=== PATIENT | female | born 1950 | race Caucasian/White ===

== ENCOUNTER 2020-03-10 11:48 | Outpatient (CLI) | payer MEDICARE, OTHER, SELFPAY ==
--- NOTE | 2020-03-10 11:54 | MM_ITS ---
WS: [id number] BILATERAL DIGITAL SCREENING MAMMOGRAPHY WITH CAD CLINICAL INFORMATION: SCREENING HISTORY: Screening mammogram. No current complaints. COMPARISON: 2018 TECHNIQUE: Bilateral CC and MLO views. FINDINGS: Scattered fibroglandular densities bilaterally. Asymmetric density subareolar right breast more consp icuous compared to the prior examinations. Recommend further evaluation with spot compression views a nd ultrasound if persistent. Punctate calcifications right breast. Left breast is unchanged. RECOMMEND FURTHER EVALUATION WITH RIGHT DIAGNOSTIC MAMMOGRAPHY AND ULTRASOUND IF PERSISTENT. MM/[place] [id number] IMPRESSION: BI-RADS: 0-Incomplete: Need additional imaging evaluation FOLLOW UP: Need Additional Imaging
== END 2020-03-10 11:49 | disposition home or self-care (01) ==
LOC: RADSHAW 11:53
PROVIDERS: PCP Family Medicine; Visit Provider Family Medicine
DX: Z12.31 Encounter for screening mammogram for malignant neoplasm of breast (principal); R92.1 Mammographic calcification found on diagnostic imaging of breast; N64.89 Other specified disorders of breast
CPT/HCPCS: 77067

== ENCOUNTER 2020-03-27 13:11 | Outpatient (CLI) | payer MEDICARE, OTHER, SELFPAY ==
--- NOTE | 2020-03-27 13:16 | US_ITS ---
WS: [id number] RIGHT DIGITAL MAMMOGRAPHY WITH CAD CLINICAL INFORMATION: ABNORMAL MAMMOGRAM COMPARISON: March 10, 2020 TECHNIQUE: 3 views of the right breast were obtained. FINDINGS: Scattered fibroglandular densities of the right breast. Punctate calcifications right breast. A few b enign calcifications. Asymmetric density subareolar right breast less conspicuous today. Ultrasound i s pending ULTRASOUND BREAST RIGHT TECHNIQUE: Ultrasound right breast focused area of concern. CLINICAL INFORMATION: ABNORMAL MAMMOGRAM COMPARISON: None. FINDINGS: Ultrasound right breast 11-1 o'clock and subareolar. Dense parenchymal tissue visualized. No evidence of pathologic mass or lesion. No cystic or solid lesions. No lesions to target for biopsy. US/US breast RT limited* [id number] IMPRESSION: BI-RADS: 2-Benign FOLLOW UP: 1 Year Follow-up Recommend return to annual screening mammography.
== END 2020-03-27 13:12 | disposition home or self-care (01) ==
LOC: RADSHAW 13:14
PROVIDERS: PCP Family Medicine; Visit Provider Family Medicine
DX: R92.8 Other abnormal and inconclusive findings on diagnostic imaging of breast (principal); R92.1 Mammographic calcification found on diagnostic imaging of breast
CPT/HCPCS: 76642; 77065

== ENCOUNTER 2020-09-29 10:31 | Outpatient (CLI) | payer MEDICARE, OTHER, SELFPAY ==
--- NOTE | 2020-09-29 10:43 | US_ITS ---
WS: [id number] ULTRASOUND SOFT TISSUES LEFT axilla. HISTORY: UNSPECIFIED LUMP AXILLARY TAIL LEFT BREAST COMPARISON: None available. TECHNIQUE: 2-D and color Doppler imaging is submitted. No abnormality is noted within the LEFT axilla or axillary tail in the area of tenderness as directed by the patient. There are benign lymph nodes in the axilla. No solid or cystic masses. US/US soft tissue/extremity [id number] IMPRESSION: Negative ultrasound LEFT axilla.
== END 2020-09-29 10:32 | disposition home or self-care (01) ==
LOC: RAD 10:36
PROVIDERS: PCP Family Medicine; Visit Provider Family Medicine
DX: N63.32 Unspecified lump in axillary tail of the left breast (principal)
CPT/HCPCS: 76882

== ENCOUNTER 2021-04-06 11:09 | Outpatient (CLI) | payer MEDICARE, OTHER, SELFPAY ==
--- NOTE | 2021-04-06 11:21 | MM_ITS ---
WS: [id number] BILATERAL DIGITAL SCREENING MAMMOGRAPHY WITH CAD CLINICAL INFORMATION: SCREENING COMPARISON: March 10, 2020 TECHNIQUE: Bilateral CC and MLO views. FINDINGS: Scattered fibroglandular densities bilaterally. No suspicious focal mass, asymmetry, calcifications, or architectural distortion. No evidence of malignancy. Punctate and lucent centered calcifications. MM/[place] [id number] IMPRESSION: BI-RADS: 2-Benign FOLLOW UP: 1 Year Follow-up Recommend return to annual screening mammography.
== END 2021-04-06 11:10 | disposition home or self-care (01) ==
PROVIDERS: PCP Family Medicine; Visit Provider Family Medicine
DX: Z12.31 Encounter for screening mammogram for malignant neoplasm of breast (principal)
CPT/HCPCS: 77067

== ENCOUNTER → 2021-07-05 10:13 | Outpatient (BNVA) | payer MEDICARE, OTHER, SELFPAY | PROVIDERS: PCP Family Medicine; Visit Provider Nurse Practitioner Family | DX: E78.00 Pure hypercholesterolemia, unspecified (principal); I10 Essential (primary) hypertension; Z78.0 Asymptomatic menopausal state; M25.50 Pain in unspecified joint; M79.10 Myalgia, unspecified site; Z13.9 Encounter for screening, unspecified; K76.89 Other specified diseases of liver | CPT/HCPCS: 80053; 80061; 82306; 82607; 82746; 84443; 85651; 86140; 86200; 86431; 86705; 86706; 86709; 86803; 87340 ==

== ENCOUNTER 2022-04-19 10:02 | Outpatient (CLI) | payer MEDICARE, OTHER, SELFPAY ==
--- NOTE | 2022-04-19 10:06 | MM_ITS ---
WS: [id number] BILATERAL SCREENING DIGITAL TOMOSYNTHESIS MAMMOGRAM WITH CAD HISTORY: SCREENING COMPARISON: 04/06/2021 and 03/10/2020 Bilateral CC and MLO views with tomosynthesis and synthetic mammography submitted. Computer aided det ection analyzed. Breast composition: There are scattered areas of fibroglandular density. No suspicious masses, microc alcifications or architectural distortion. Benign calcifications. MM/[place] [id number] IMPRESSION: BI-RADS: 2-Benign FOLLOW UP: 1 Year Follow-up
== END 2022-04-19 10:03 | disposition home or self-care (01) ==
LOC: RAD 10:02
PROVIDERS: PCP Family Medicine; Visit Provider Family Medicine
DX: Z12.31 Encounter for screening mammogram for malignant neoplasm of breast (principal)
CPT/HCPCS: 77063; 77067

== ENCOUNTER 2022-06-19 10:50 | Outpatient (CLI) | payer MEDICARE, OTHER, SELFPAY ==
--- NOTE | 2022-06-19 10:59 | MR_ITS ---
WS: [id number] MR of the abdomen without gadolinium enhancement INDICATION: Possible liver lesion reported on outside CT TECHNIQUE: Coronal single shot, axial single shot, axial T2 fat sat, and dual echo in/out of phase ax ial imaging. Gadolinium not administered due to inability to obtain IV access after multiple attempts . FINDINGS: Small T2 hyperintense lesion at the dome of the liver adjacent to the diaphragm measuring 7 .6 mm. Additional lesion LEFT hepatic lobe measuring 10 mm. These most likely represent either a hepa tic cyst or hemangioma. Gadolinium not administered. This may be difficult to locate with ultrasound due to size. This can be followed up with MRI in 6 months. Comparison with outside imaging may be hel pful when available. Normal gallbladder. No intrahepatic biliary ductal dilatation. Normal GE junction. Lung bases appear well aerated. Normal spleen. Adrenal glands are normal. No hydronephrosis in either kidney. Pancreas is normal in appearance. Normal common bile duct. Normal tapering of the common bile duct distally. M ild diffuse fatty infiltration liver with signal dropout on the out of phase imaging. MR/MR abdomen wo con [id number] IMPRESSION:Gadolinium not administered due to inability to obtain IV access aft er multiple attempts. 1. Small T2 hyperintense lesions liver dome adjacent to the diaphragm measurin g 7.6 mm and LEFT hepatic lobe measuring 10 mm likely represents hepatic cyst o r cavernous hemangioma. Gadolinium not administered. This can be followed up in 6 months with MRI of the abdomen without and with gadolinium enhancement. Gado linium not administered today due to inability to obtain IV access. 2. Mild diffuse fatty infiltration of the liver. 3. Normal gallbladder. 4. No hydronephrosis in either kidney. 5. Pancreas appears normal. Normal common bile duct. 6. No other remarkable findings. Addendum will be issued when outside comparison films become available.
== END 2022-06-19 10:51 | disposition home or self-care (01) ==
LOC: RAD 10:53
PROVIDERS: PCP Family Medicine; Visit Provider Family Medicine
DX: K76.9 Liver disease, unspecified (principal); K76.0 Fatty (change of) liver, not elsewhere classified
CPT/HCPCS: 74181

== ENCOUNTER → 2022-11-05 09:55 | Outpatient (BNVA) | payer MEDICARE, OTHER, SELFPAY | PROVIDERS: PCP Family Medicine; Visit Provider Family Medicine | DX: I10 Essential (primary) hypertension (principal); E78.00 Pure hypercholesterolemia, unspecified; K76.9 Liver disease, unspecified; M79.10 Myalgia, unspecified site | CPT/HCPCS: 80053; 80061; 84443; 85025 ==

== ENCOUNTER 2022-11-26 10:33 | Outpatient (CLI) | payer MEDICARE, OTHER, SELFPAY ==
--- NOTE | 2022-11-26 10:15 | MR_ITS ---
WS: [id number] MRI OF THE ABDOMEN WITHOUT AND WITH GADOLINIUM ENHANCEMENT INDICATION: 6 month follow-up liver lesion COMPARISON: MRI June 19, [address] April 25, 2022 TECHNIQUE: Coronal single shot, axial single shot, axial T2 fat sat, and attaches axial imaging, and post gadolinium imaging was obtained. FINDINGS: Again seen is the small T2 hyperintense lesions in the liver dome measuring 7.6 mm adjacent to the diaphragm with additional lesion LEFT hepatic lobe measuring 10 mm. Additional tiny lesion be tter visualized today at the tip of the LEFT hepatic lobe measuring 7 mm. These lesions are unchanged in appearance since the prior examination. Today on the post gadolinium i mages these demonstrate no significant enhancement. No significant enhancement on the 5 minute delaye d images. Findings most compatible with small hepatic cysts. No other suspicious hepatic lesions. Normal gallbladder. No intrahepatic biliary ductal dilatation. Normal GE junction. Lung bases appear well aerated. Normal spleen. Adrenal glands are normal. No hydronephrosis in either kidney. Pancreas is normal in appearance. Normal common bile duct. Normal tapering of the common bile duct distally. M ild diffuse fatty infiltration liver with signal dropout on the out of phase imaging. MR/MR abdomen wo/w con* [id number] IMPRESSION: 1. 3 small T2 hyperintense hepatic lesions are visualized unchanged from previ ous. No significant enhancement compatible with hepatic cysts. These are detail ed above. 2. Mild hepatomegaly with diffuse fatty infiltration of the liver is unchanged . 3. Normal gallbladder. 4. No hydronephrosis in either kidney.
== END 2022-11-26 10:34 | disposition home or self-care (01) ==
LOC: RAD 10:38
PROVIDERS: PCP Family Medicine; Visit Provider Family Medicine
DX: K76.9 Liver disease, unspecified (principal)
CPT/HCPCS: 74183; A9577

== ENCOUNTER → 2023-01-02 14:39 | Outpatient (BNVA) | payer MEDICARE, OTHER, SELFPAY | PROVIDERS: PCP Family Medicine; Visit Provider Family Medicine | DX: M54.50 Low back pain, unspecified (principal); J02.9 Acute pharyngitis, unspecified; M54.6 Pain in thoracic spine | CPT/HCPCS: 81000; 87071; 87880 ==

== ENCOUNTER → 2023-05-07 11:50 | Outpatient (BNVA) | payer MEDICARE, OTHER, SELFPAY | PROVIDERS: PCP Family Medicine; Visit Provider Family Medicine | DX: I10 Essential (primary) hypertension (principal); K76.9 Liver disease, unspecified; M79.10 Myalgia, unspecified site | CPT/HCPCS: 80053; 80061; 84443; 85025 ==

== ENCOUNTER 2023-05-14 10:41 | Outpatient (CLI) | payer MEDICARE, OTHER, SELFPAY ==
--- NOTE | 2023-05-14 10:48 | MM_ITS ---
WS: [id number] Bilateral screening 3D tomosynthesis digital mammogram, 05/14/2023 Clinical Data: SCREENING Comparison: 03/19/2022, 04/06/2021, 03/27/2020, 03/10/2020, 10/27/2018, 10/21/2017, 03/28/2016, 11/08/2014, 04/2013, 06/18/2013, 03/27/2012, 10/25/2009, 05/05/2008, 02/11/2007. Findings: The breast parenchymal pattern shows fibroglandular tissue. No spiculated masses or clustered calcifi cations are seen. There are no secondary signs of carcinoma. There are scattered benign calcification s in the central right breast. Impression: 1. Negative bilateral mammogram unchanged. 2. Recommend annual screening mammograms. MM/[place] [id number] BIRADS: 1-Negative FOLLOW UP: 1 Year Follow-up The CAD credit report checker was used.
== END 2023-05-14 10:42 | disposition home or self-care (01) ==
PROVIDERS: PCP Family Medicine; Visit Provider Family Medicine
DX: Z12.31 Encounter for screening mammogram for malignant neoplasm of breast (principal)
CPT/HCPCS: 77063; 77067

== ENCOUNTER → 2023-12-29 11:19 | Outpatient (BNVA) | payer MEDICARE, OTHER, SELFPAY | PROVIDERS: PCP Family Medicine; Visit Provider Family Medicine | DX: I10 Essential (primary) hypertension (principal); E78.00 Pure hypercholesterolemia, unspecified; K76.9 Liver disease, unspecified; M79.10 Myalgia, unspecified site; K21.9 Gastro-esophageal reflux disease without esophagitis | CPT/HCPCS: 80053; 80061; 84443; 85025 ==

== ENCOUNTER 2024-05-26 10:35 | Outpatient (CLI) | payer MEDICARE, OTHER, SELFPAY ==
--- NOTE | 2024-05-26 10:40 | MM_ITS ---
WS: [id number] BILATERAL SCREENING DIGITAL TOMOSYNTHESIS MAMMOGRAM WITH CAD HISTORY: SCREENING COMPARISON: 05/14/2023, 04/19/2022 and 10/27/2018 Bilateral CC and MLO views with tomosynthesis and synthetic mammography submitted. Computer aided det ection analyzed. Breast composition: There are scattered areas of fibroglandular density. No suspicious masses, microc alcifications or architectural distortion. Benign calcifications in each breast. The bilateral focal asymmetries are stable. MM/MM scr BI tomosynthesis [id number] IMPRESSION: BI-RADS: 2 - Benign. FOLLOW UP: 1 Year Follow-up
== END 2024-05-26 10:36 | disposition home or self-care (01) ==
LOC: MOBLMAM 10:41
PROVIDERS: PCP Nurse Practitioner Family; Visit Provider Nurse Practitioner Family
DX: Z12.31 Encounter for screening mammogram for malignant neoplasm of breast (principal)
CPT/HCPCS: 77063; 77067

== ENCOUNTER → 2024-12-06 10:04 | Outpatient (BNVA) | payer MEDICARE, OTHER, SELFPAY | PROVIDERS: PCP Nurse Practitioner Family; Visit Provider Nurse Practitioner Family | DX: M79.10 Myalgia, unspecified site (principal); R06.02 Shortness of breath; I10 Essential (primary) hypertension; E78.00 Pure hypercholesterolemia, unspecified; K76.9 Liver disease, unspecified | CPT/HCPCS: 80053; 80061; 82306; 82607; 85025 ==

== ENCOUNTER 2024-12-08 10:00 | Outpatient (CLI) | payer MEDICARE, OTHER, SELFPAY ==
--- NOTE | 2024-12-08 10:15 | US_ITS ---
WS: [id number] Exam: US breast RT limited* [id number] Date/Time of Exam: 12/08/2024 10:07 AM Reason For Exam: N63.0 - Unspecified lump in unspecified breast Regional ultrasound of the 8 o'clock position in the RIGHT breast is performed. There is no suspicious solid mass or nodule in this region. No cysts were identified. A diagnostic RIGHT mammogram would be recommended for further work-up. US/US breast RT limited* [id number] IMPRESSION: 1. No suspicious solid mass or nodule identified at the 8:00 region in the RIGH T breast. IMPRESSION: 1.
--- NOTE | 2024-12-08 10:58 | MM_ITS ---
WS: [email or web address] VIEWS: MLO, CC, and ML views of the RIGHT breast only. 3D digital tomosynthesis is also included in this exam. Comparison made with prior exam of 05/26/2024, 05/14/2023, 04/19/2022, 04/06/2021, 03/10/2020.. Findings: There are scattered areas of fibroglandular density. No sign of suspicious mass, tumor calcification or architectural distortion. No suspicious new finding. MM/MM diag RT tomosynthesis [id number] Impression: BI-RADS: 2 - Benign FOLLOW-UP: 1 Year Follow-up This mammogram was also analyzed by the Computer Aided Detection System [employer].
== END 2024-12-08 10:01 | disposition home or self-care (01) ==
PROVIDERS: PCP Nurse Practitioner Family; Visit Provider Nurse Practitioner Family
DX: N63.13 Unspecified lump in the right breast, lower outer quadrant (principal); R92.323 Mammographic fibroglandular density, bilateral breasts
CPT/HCPCS: 76642; 77061; G0279

== ENCOUNTER → 2025-01-27 11:33 | Outpatient (BNVA) | payer MEDICARE, OTHER, SELFPAY | PROVIDERS: PCP Nurse Practitioner Family; Visit Provider Nurse Practitioner Family | DX: J02.9 Acute pharyngitis, unspecified (principal) | CPT/HCPCS: 87071; 87880 ==